=== PATIENT | female | born 1930 | race Caucasian/White ===

== ENCOUNTER 2018-04-16 10:34 | Day surgery (SDC) | payer BC, MEDICARE ==
[~2018-04-16] VITALS: Ht 160 cm; Wt 56.7 kg
[~2018-04-16 10:34] MED LIST: CHLORHEXIDINE 0.12% 15 ML MOUTHWASH. SWSP ONE
[2018-04-16] MEDS ORDERED: BUPIVACAINE-EPI 0.5%-1:200000 50 ML VIAL. ONE (10:41)
[2018-04-16] MEDS ORDERED: IV RINGERS,LACTATED 1000ML 1,000 ML IV SCH (10:55)
[2018-04-16] MEDS ORDERED: LIDOCAINE 1% PF 2 ML VIAL. ID PRN (11:00)
[2018-04-16] MEDS ORDERED: fentaNYL PF VIAL 100 MCG/2 ML VIAL IV PRN ×2 (11:00)
[2018-04-16] MEDS ORDERED: MIDAZOLAM HCL/PF 2 MG/2 ML VIAL. IV PRN (11:00)
[2018-04-16] MEDS ORDERED: METO25TA4 PO (11:03)
[2018-04-16] MEDS ORDERED: FURO40TA4 PO (11:03)
[2018-04-16] MEDS ORDERED: TRAM50TA PO (11:03)
[2018-04-16] MEDS ORDERED: ESOM20CA PO (11:04)
[2018-04-16] MEDS ORDERED: LEVO50TA5 PO (11:04)
[2018-04-16] MEDS ORDERED: ROCURONIUM 50 MG/5 ML VIAL. ONE (11:05)
[2018-04-16] MEDS ORDERED: PROPOFOL 20 ML IV ONE (11:05)
[2018-04-16] MEDS ORDERED: CLON0.1T PO (11:05)
[2018-04-16] MEDS ORDERED: LIDOCAINE 2% PF Vial for OR 5 ML VIAL. ONE (11:05)
[2018-04-16] MEDS ORDERED: fentaNYL PF VIAL 100 MCG/2 ML VIAL ONE (11:06)
[2018-04-16] MEDS ORDERED: PHENYLEPHRINE 10 MG/ML VIAL. ONE (11:07)
[2018-04-16] MEDS ORDERED: LOSA25TA4 PO (11:07)
[2018-04-16] MEDS ORDERED: GELATIN SPONGE SIZE 100. ONE (11:23)
[2018-04-16] MEDS ORDERED: CHLORHEXIDINE 0.12% 15 ML MOUTHWASH. SWSP ONE (11:45)
[2018-04-16] MEDS ORDERED: GELATIN SPONGE SIZE 12-7MM SPONGE. ONE (12:07)
[2018-04-16] MEDS ORDERED: ONDANSETRON PF 4 MG/2 ML VIAL. ONE (13:07)
[2018-04-16] MEDS ORDERED: DEXAMETHASONE SOD PHOS 20 MG/5 ML VIAL. ONE (13:07)
[2018-04-16] MEDS ORDERED: SEVOFLURANE 31 TO 60 MINUTES. IH ONE (13:07)
--- NOTE | 2018-04-16 13:58 | PDOC4 ---
OPERATIVE NOTE Date: Date: Apr 16, 2018 Pre-Op Diagnosis: HTN HCL OA Osteoporosis non restorable teeth 5, 9, 10, 22,23,24,25,26 Post-Op Diagnosis: HTN HCL OA Osteoporosis non restorable teeth 5, 9, 10, 22,23,24,25,26 Procedure Performed: extraction of non restorable teeth 5, 9, 10, 22,23,24,25,26 Surgeon: ermias Anesthesia Type: paresh Blood Loss: 20 Specimans Obtained: teeth disposed in OR Findings: see dictation Complications: none Operative Note: see dictation extraction of non restorable teeth 5, 9, 10, 22,23,24,25,26 PARESH SMITH DMD Apr 16, 2018 13:58
--- NOTE | 2018-04-16 14:34 | OP ---
DATE OF SURGERY: 04/16/2018 OPERATING SURGEON: Steffen Smith DMD OPERATING SERVICE: case management director. ANESTHESIA: General. PREOPERATIVE DIAGNOSES: She had caries of multiple teeth, hypertension, hypercholesterolemia, hypothyroidism, gastroesophageal reflux disease, osteoarthritis, osteoporosis, chronic kidney disease, chronic back pain. POSTOPERATIVE DIAGNOSES: She had caries of multiple teeth, hypertension, hypercholesterolemia, hypothyroidism, gastroesophageal reflux disease, osteoarthritis, osteoporosis, chronic kidney disease, chronic back pain. PROCEDURES PERFORMED: Extraction of nonrestorable teeth numbers 5, 9, 10, 22, 23, 24, 25, 26 and minor alveoloplasty performed in all surgical areas. BRIEF HISTORY: The patient is a kind 87-year-old female with some difficulty with dementia and the aforementioned problems. Given the fact that we would be operating in multiple areas in her mouth and her medical comorbidities, the operative destination would be elevated to the operating room at [facility]. The patient and brother were satisfied with this opportunity. A full history and physical was performed in our clinic and surgery was scheduled for operating in the [facility] on 04/16/2018. ESTIMATED BLOOD LOSS: Approximately 20 mL. DRAINS PLACED: None. SPECIMEN SENT: None. COMPLICATIONS: None noted at this time. DESCRIPTION OF PROCEDURE: After history and physical was updated in the preoperative holding area, the patient was transported by the Anesthesia Service to the operating suite, placed in the supine position. All pressure points were checked. The patient was then induced with the general anesthesia and intubated without complication with an oral intubation attached to the upper left part of her mouth. A timeout was initiated by surgical staff. All perioperative staff was in agreement. Anesthesia in the form of local anesthesia was placed in the proposed operative areas with 12 mL of 0.5% Marcaine and 1:200,000 epinephrine. An additional 10 mL were administered at the culmination of the procedure. Surgery began with placement of a moistened throat pack in the oropharynx. Biteblock was employed. A 15 blade was employed in the upper right and left quadrants and the lower right and lower left quadrants. A full thickness mucoperiosteal flap was reflected by teeth numbers 5, 9, 10, 22, 23, 24, 25, 26. Teeth were then luxated, elevated and extracted without complication. Tooth #22 required removal of additional bony alveolus. The sites were all then curetted, suctioned and lavaged. Excessive bony bleeding was stopped with placement of a minor amount of bone wax at site #22, 23 and also 26. The excess bone wax was curetted away. Sites lavaged, curetted and suctioned. Placement of Gelfoam in all surgical areas was performed and then oversewn with 3-0 chromic gut sutures, interrupted sutures and running locked suture as needed for adequate hemostasis. At this point in time, the oral cavity was then lavaged and suctioned. The moistened throat pack was removed. An OG was passed and the stomach was decompressed. The patient was then returned to the care of Anesthesia where she was then awakened and extubated without complication and transported by the Anesthesia Service to the PACU. STEFFEN SMITH DMD DR: Robin JOB#: [id number] / [id number]
[2018-04-16 15:05] VITALS: BP 161/67
== END 2018-04-16 15:13 | disposition home or self-care (01) ==
LOC: SURG 10:34
PROVIDERS: ATTEND Dentist Oral and Maxillofacial Surgery
DX: K02.9 Dental caries, unspecified (principal); E78.00 Pure hypercholesterolemia, unspecified; E03.9 Hypothyroidism, unspecified; I13.0 Hypertensive heart and chronic kidney disease with heart failure and stage 1 through stage 4 chronic kidney disease, or unspecified chronic kidney disease; N18.9 Chronic kidney disease, unspecified; I50.9 Heart failure, unspecified; E66.9 Obesity, unspecified; Z68.22 Body mass index [BMI] 22.0-22.9, adult; K21.9 Gastro-esophageal reflux disease without esophagitis; Z90.710 Acquired absence of both cervix and uterus; Z87.440 Personal history of urinary (tract) infections; M19.90 Unspecified osteoarthritis, unspecified site; M81.0 Age-related osteoporosis without current pathological fracture; G89.29 Other chronic pain; Z79.899 Other long term (current) drug therapy
CPT/HCPCS: 41874; 41899; J0690; J1100; J2001; J2405; J2704; J3010; A7015